=== PATIENT | male | born 1945 | race Two or more races ===

== ENCOUNTER 2020-07-24 14:44 | Inpatient (IN) | payer MEDICARE, OTHER ==
[~2020-07-24] VITALS: Ht 172.7 cm; Wt 83.3 kg
[2020-07-24 15:25] LABS: Basophils # (auto) 0 10 ^3/uL (0-0.2); Basophils % (auto) 0.3 % (0.0-2.0); Eosinophils # (auto) 0.1 10 ^3/uL (0-0.8); Hematocrit 38.5 % (41.0-53.0); Hemoglobin 13.1 g/dL (13.5-17.5); Lymphocytes % (auto) 31.1 % (10.0-50.0); Mean Corpuscular Hemoglobin 32.3 pg (28.0-32.0); Mean Corpuscular Hgb Conc. 33.9 g/dL (32.0-36.0); Mean Corpuscular Volume 95.1 fL (80.0-100.0); Monocytes # (auto) 0.6 10 ^3/uL (0-1.3); Monocytes % (auto) 9.7 % (0.0-12.0); Neutrophils # (auto) 3.6 10 ^3/uL (1.6-8.6); Neutrophils % (auto) 56.9 % (37.0-80.0); Nucleated Red Blood Cells % 0.1 %; Red Blood Cells 4.04 10^6/uL (4.5-5.90); Red Cell Distribution Width 13.5 % (11.8-14.3); White Blood Cell 6.3 10^3/uL (4.4-10.8)
[2020-07-24 15:32] LABS: Albumin 3.4 g/dL (3.4-5.0); BUN/Creatinine Ratio 11.1; Calcium 9.2 mg/dL (8.5-10.1); Potassium 4.4 mmol/L (3.5-5.1)
[2020-07-24 15:34] LABS: Bilirubin, Total 0.3 mg/dL (0.2-1.0); Total Protein 8.2 g/dL (6.4-8.2)
[2020-07-24] MEDS ORDERED: SODIUM CHLORIDE 0.9% 1,000 ML IV ONE ×2 (16:30→21:15)
[2020-07-24] MEDS ORDERED: MORPHINE SULFATE INJECTION 2 MG/ML SYRG IV PRN (17:30)
[2020-07-24] MEDS ORDERED: hydrALAZINE HCL 20 MG/ML VL IV PRN (17:30)
[2020-07-24] MEDS ORDERED: VANCOMYCIN PER PHARMACY 0 MG IV SCH (17:30)
[2020-07-24] MEDS ORDERED: HYDROcodone-ACET 5/325MG TAB PO PRN (17:30)
[2020-07-24] MEDS ORDERED: ACETAMINOPHEN 325 MG TAB PO PRN (17:30)
[2020-07-24] MEDS ORDERED: ONDANSETRON HCL 4 MG/2 ML VIAL IV PRN (17:30)
[2020-07-24 17:40] LABS: Magnesium 1.8 mg/dL (1.6-2.6)
[2020-07-24] MEDS: SODIUM CHLORIDE 0.9% 1,000 ML IV SCH (17:51)
[2020-07-24] MEDS ORDERED: VANCOMYCIN 1GM/250ML 250 ML IV ONE (18:00)
[2020-07-24] MEDS ORDERED: VANCOMYCIN 750mg/250ml 250 ML IV SCH (18:00)
[2020-07-24 18:05] LABS: INR 1.06 (0.9-1.15); Partial Thromboplastin Time 31.3 sec (23.0-31.2)
[2020-07-24] MEDS ORDERED: ATEN50TA PO (19:02)
[2020-07-24] MEDS ORDERED: BIMA1SOL EACHEYE (19:02)
[2020-07-24] MEDS ORDERED: AMLO-489 PO (19:02)
[2020-07-24] MEDS ORDERED: FEBU40TA3 PO (19:02)
[2020-07-24] MEDS ORDERED: BRIN1SUS EACHEYE (19:02)
[2020-07-24] MEDS ORDERED: TIMO0.5S32 EACHEYE (19:02)
[2020-07-24 22:00] VITALS: BP 158/82
[2020-07-24 23:42] LABS: Urine Bacteria FEW /hpf (None Seen); Urine Blood Negative /uL (Negative); Urine Specific Gravity 1.009 (1.001-1.035); Urine WBC 1 /hpf (0 - 3)
[2020-07-25] MEDS: SODIUM CHLORIDE 0.9% 1,000 ML IV SCH ×2 (03:55→13:30)
[2020-07-25 05:00] VITALS: BP 134/78
[2020-07-25 08:45] VITALS: BP 36/82
[2020-07-25] MEDS ORDERED: cefTRIAXone 1GM/50ML D5W 50 ML IV SCH (09:00)
[2020-07-25] MEDS ORDERED: PANTOPRAZOLE 40 MG TAB PO SCH (10:00)
[2020-07-25] MEDS ORDERED: ETOMIDATE (2MG/ML) 20ML VIAL IV ONE (10:33)
[2020-07-25] MEDS ORDERED: BACITRACIN INJ 50000 UNIT VIAL ONE (10:44)
[2020-07-25] MEDS ORDERED: ONDANSETRON HCL 4 MG/2 ML VIAL IV PRN (10:45)
[2020-07-25] MEDS ORDERED: LABETALOL HCL 5 MG/ML 4ML SYRINGE IV PRN (10:45)
[2020-07-25] MEDS ORDERED: ePHEDrine SULFATE 50 MG/ML AMP IV PRN (10:45)
[2020-07-25] MEDS ORDERED: MIDAZOLAM HCL 2MG/2ML 2ml VIAL (1mg/ml) IV PRN (10:45)
[2020-07-25] MEDS ORDERED: MORPHINE SULFATE 4 MG/ML SYR/VIAL IV PRN (10:45)
[2020-07-25] MEDS ORDERED: HYDROmorphone HCL 2 MG/ML VL IV PRN (10:45)
[2020-07-25] MEDS ORDERED: SUCCINYLCHOLINE CHLORIDE 20 MG/ML 10ML VIAL IV ONE (10:46)
[2020-07-25] MEDS ORDERED: MEPERIDINE HCL (25 MG/ML) 1ML VIAL ONE ×2 (10:48→11:16)
[2020-07-25] MEDS ORDERED: fentaNYL CITRATE 100 MCG/2 ML VL ONE (10:48)
[2020-07-25] MEDS ORDERED: MIDAZOLAM HCL 2MG/2ML 2ml VIAL (1mg/ml) ONE (10:48)
[2020-07-25] MEDS ORDERED: DexAMETHasone SOD PHOS 10MG/1ML VIAL INJ ONE (11:15)
[2020-07-25] MEDS ORDERED: PROPOFOL 10 MG/ML 20 ML IV ONE (11:15)
[2020-07-25] MEDS ORDERED: BUPIVACAINE HCL 50 ML ONE (11:30)
[2020-07-25 17:00] VITALS: BP 127/73
== END 2020-07-25 18:30 | disposition left against medical advice (07) | DRG 857 ==
LOC: ER 14:44 → OVERFLOW 17:29 → ER 18:06 → WEST WING 18:39
PROVIDERS: ADMIT Nurse Practitioner Acute Care; ATTEND Internal Medicine Nephrology
PROC: 0JBF0ZZ Excision of Left Upper Arm Subcutaneous Tissue and Fascia, Open Approach (ICD-10-PCS; 2020-07-25)
PROC: 0J9F0ZZ Drainage of Left Upper Arm Subcutaneous Tissue and Fascia, Open Approach (ICD-10-PCS; principal; 2020-07-25 10:48)
DX: T81.49XA Infection following a procedure, other surgical site, initial encounter (principal); L03.114 Cellulitis of left upper limb; L72.9 Follicular cyst of the skin and subcutaneous tissue, unspecified; F17.210 Nicotine dependence, cigarettes, uncomplicated; I12.9 Hypertensive chronic kidney disease with stage 1 through stage 4 chronic kidney disease, or unspecified chronic kidney disease; I70.0 Atherosclerosis of aorta; Y83.8 Other surgical procedures as the cause of abnormal reaction of the patient, or of later complication, without mention of misadventure at the time of the procedure; Y92.89 Other specified places as the place of occurrence of the external cause; Z71.6 Tobacco abuse counseling; Z79.899 Other long term (current) drug therapy; Z79.891 Long term (current) use of opiate analgesic; Z79.01 Long term (current) use of anticoagulants; N18.32 Chronic kidney disease, stage 3b
CPT/HCPCS: 36415; 71046; 80053; 81001; 83735; 84443; 84484; 85025; 85610; 85730; 86850; 86900; 86901; 87070; 87075; 87205; 93005; 96374; G0378; J0330; J0696; J1100; J2250; J2704; J3490

== ENCOUNTER 2023-06-06 10:43 | Emergency (ER) | payer MEDICARE, OTHER ==
[~2023-06-06] VITALS: Ht 172.7 cm; Wt 82.5 kg
[~2023-06-06 10:43] MED LIST: AMLO1TAB22 PO; ATEN50TA PO; BRIN1SUS EACHEYE; FEBU40TA6 PO; TIMO0.5S32 EACHEYE; [UNRECOGNIZED DRUG - CODE] EACHEYE
[2023-06-06] MEDS: LIDOCAINE W/ EPINEPHRINE 1% 20ML VIAL ID ONE (15:06)
[2023-06-06 15:45] VITALS: BP 125/71; PULSE 62; RESP 16; TEMP 97.7; O2SAT 97
[2023-06-06] MEDS ORDERED: HYDR-4902 PO (15:56)
[2023-06-06] MEDS ORDERED: MELO7.5T7 PO (15:56)
[2023-06-06] MEDS ORDERED: CEPH500C PO (17:09)
== END 2023-06-06 16:47 | disposition home or self-care (01) ==
LOC: ER 10:43
DX: M25.461 Effusion, right knee (principal); M17.11 Unilateral primary osteoarthritis, right knee
CPT/HCPCS: 73562; 87205

== ENCOUNTER 2023-10-25 06:07 | Inpatient (IN) | payer MEDICARE, OTHER ==
[2023-10-22 14:33] LABS: Basophils # (auto) 0.1 10 ^3/uL (0-0.2); Basophils % (auto) 1.3 % (0.0-2.0); Eosinophils # (auto) 0.2 10 ^3/uL (0-0.8); Eosinophils % (auto) 2.5 % (0.0-7.0); Hemoglobin 10.5 g/dL (13.5-17.5); Lymphocytes % (auto) 25.7 % (10.0-50.0); Mean Corpuscular Hemoglobin 29.3 pg (28.0-32.0); Mean Corpuscular Hgb Conc. 32.9 g/dL (32.0-36.0); Mean Corpuscular Volume 88.8 fL (80.0-100.0); Monocytes # (auto) 0.7 10 ^3/uL (0-1.3); Monocytes % (auto) 9.1 % (0.0-12.0); Neutrophils # (auto) 4.9 10 ^3/uL (1.6-8.6); Neutrophils % (auto) 61.4 % (37.0-80.0); Platelet Count (auto) 417 10^3/uL (140-450); Red Cell Distribution Width 15.3 % (11.8-14.3); White Blood Cell 7.9 10^3/uL (4.4-10.8)
[2023-10-22 14:51] LABS: INR 1.12 (0.9-1.15); Partial Thromboplastin Time 36.4 SEC (24.5-34.5); Prothrombin Time 11.8 sec (9.3-11.8)
[2023-10-22 15:12] LABS: Alkaline Phosphatase 97 U/L (46-116); Anion Gap 8 (5-15); BUN/Creatinine Ratio 11.3 (10.0-20.0); Blood Urea Nitrogen 26 mg/dL (9-23); Calcium 9.1 mg/dL (8.7-10.4); Carbon Dioxide 21 mmol/L (20-30); Chloride 110 mmol/L (98-107); Glucose 101 mg/dL (74-106); Sodium 139 mmol/L (136-145)
[2023-10-22 15:13] LABS: Albumin 4.1 g/dL (3.2-4.8); Aspartate Aminotransferase 9 U/L (13-40)
[2023-10-22 15:14] LABS: Bilirubin, Total 0.2 mg/dL (0.2-1.0); Total Protein 8.1 g/dL (5.7-8.2)
[2023-10-22 15:16] LABS: Alanine Aminotransferase < 9 U/L (7-40)
[~2023-10-25] VITALS: Ht 162.6 cm; Wt 86.5 kg
[~2023-10-25 06:07] MED LIST changes: +PANT40TA2 PO; -[UNRECOGNIZED DRUG - CODE] EACHEYE
[2023-10-25] MEDS: ceFAZolin 2 GM/D5W50ml 50 ML IV ONE (06:32)
[2023-10-25] MEDS: DexAMETHasone SOD PHOS 4 MG/1ML SDV INJ ONE (06:46)
[2023-10-25] MEDS: EPINEPHrine HCL 1 MG/1 ML AMP ONE (06:46)
[2023-10-25] MEDS ORDERED: GLYCOPYRROLATE 0.2 MG/ML 1ML VIAL ONE (06:55)
[2023-10-25] MEDS ORDERED: PROPOFOL 10 MG/ML 20 ML IV ONE ×2 (06:55→09:00)
[2023-10-25] MEDS ORDERED: LIDOCAINE 1% INJ PF 5ML AMP ONE (06:56)
[2023-10-25] MEDS ORDERED: DexAMETHasone SOD PHOS 10MG/1ML VIAL INJ ONE (06:56)
[2023-10-25] MEDS ORDERED: ONDANSETRON HCL 4 MG/2 ML VIAL ONE (06:56)
[2023-10-25] MEDS: BUPIVACAINE HCL 50 ML ONE (06:59)
[2023-10-25] MEDS: TRANEXAMIC ACID 20 ML ONE (07:01)
[2023-10-25] MEDS: CELECOXIB 100 MG CAP PO ONE (07:05)
[2023-10-25] MEDS: ACETAMINOPHEN IV 1000 MG/100ML (10MG/ML) IV ONE (07:05)
[2023-10-25] MEDS: GABAPENTIN 400 MG CAP PO ONE (07:05)
[2023-10-25] MEDS ORDERED: KETAMINE 50mg/ML 10ml Vial 10 ML ONE (07:15)
[2023-10-25 07:20] LABS: Urine Bacteria FEW /hpf (None Seen); Urine Blood Negative /uL (Negative); Urine Clarity Clear (Clear); Urine Color Light-Yellow (Yellow); Urine Protein, UAD TRACE (Negative); Urine Specific Gravity 1.016 (1.001-1.035); Urine Urobilinogen Normal (Negative); Urine WBC 1 /hpf (0 - 3); Urine pH 5.5 (5.0-9.0)
[2023-10-25] MEDS ORDERED: SODIUM CHLORIDE LOCK 10 ML ONE (07:26)
[2023-10-25] MEDS ORDERED: ePHEDrine SULFATE 50 MG/ML AMP ONE (07:55)
[2023-10-25] MEDS: KETOROLAC TROMETH 30 MG/ML 1ML VIAL ONE ×2 (07:58→10:15)
[2023-10-25] MEDS: MINERAL OIL TOPICAL 10ml TOP ONE (08:17)
[2023-10-25] MEDS ORDERED: LIDOCAINE HCL 2% TOP JELLY 5ML TOP ONE (08:51)
[2023-10-25] MEDS ORDERED: ESMOLOL HCL 10 ML IV ONE (09:02)
[2023-10-25] MEDS ORDERED: fentaNYL CITRATE 100 MCG/2 ML VL ONE (09:03)
[2023-10-25 09:53] VITALS: O2SAT 98
[2023-10-25] MEDS ORDERED: oxyCODONE HCL 5MG TAB PO PRN (10:00)
[2023-10-25] MEDS: PREGABALIN 25 MG CAP PO SCH (10:00)
[2023-10-25] MEDS: TIMOLOL MAL 0.5% OPTH(EYE) SOL 5ML EACHEYE SCH (10:00)
[2023-10-25] MEDS ORDERED: ACETAMINOPHEN 325 MG TAB PO PRN (10:00)
[2023-10-25] MEDS: amLODIPine BESYLATE 5 MG TAB PO SCH (10:00)
[2023-10-25] MEDS: PANTOPRAZOLE 40 MG TAB PO SCH (10:00)
[2023-10-25] MEDS: MORPHINE SULF PF 5 MG/10 ML VIAL ONE (10:12)
[2023-10-25] MEDS: VANCOMYCIN HCL 1000 MG VL ONE (10:12)
[2023-10-25] MEDS: BUPIVACAINE 0.25% INJ 50ML VIAL ONE (10:13)
[2023-10-25] MEDS: fentaNYL CITRATE 100 MCG/2 ML VL IV PRN (10:13)
[2023-10-25] MEDS ORDERED: hydrALAZINE HCL 20 MG/ML VL IV PRN (10:15)
[2023-10-25] MEDS ORDERED: ONDANSETRON HCL 4 MG/2 ML VIAL IV PRN (10:15)
[2023-10-25] MEDS: fentaNYL CITRATE 100 MCG/2 ML VL ONE (10:15)
[2023-10-25] MEDS ORDERED: ePHEDrine SULFATE 50 MG/ML AMP IV PRN (10:15)
[2023-10-25] MEDS ORDERED: HYDROmorphone HCL 2 MG/ML VL/or syr IV PRN (10:15)
[2023-10-25] MEDS ORDERED: NALOXONE HCL 0.4 MG/ML VIAL IV PRN (10:15)
[2023-10-25] MEDS ORDERED: FLUMAZENIL 0.1 MG/ML INJ 10ML MDV IV PRN (10:15)
[2023-10-25] MEDS: oxyCODONE HCL 5MG TAB PO PRN (10:20)
[2023-10-25] MEDS: oxyCODONE HCL 5MG TAB ONE (10:21)
[2023-10-25] MEDS: D5W/LACTATED RINGERS 1,000 ML IV SCH (12:00)
[2023-10-25] MEDS: ACETAMINOPHEN 325 MG TAB PO SCH (12:00)
[2023-10-25] MEDS: KETOROLAC TROMETH 30 MG/ML 1ML VIAL IV SCH (12:00)
[2023-10-25 14:10] VITALS: BP 150/68; PULSE 65; RESP 16; TEMP 98.2
[2023-10-25 14:16] VITALS: BP 153/74; PULSE 59; RESP 18; TEMP 97.8; O2SAT 96
[2023-10-25] MEDS: ceFAZolin 2 GM/D5W50ml 50 ML IV SCH (15:11)
[2023-10-25 17:00] VITALS: BP 149/88; PULSE 65; RESP 18; TEMP 98.2; O2SAT 97
[2023-10-25 20:00] VITALS: PULSE 81; RESP 18
[2023-10-25] MEDS: BRINZOLAMIDE 1% EACHEYE SCH (21:47)
[2023-10-25 22:00] VITALS: BP 120/59; PULSE 60; RESP 17; TEMP 98.7; O2SAT 96
[2023-10-26] VITALS (7 sets, daily range): BP systolic 126–131; BP diastolic 66–73; PULSE 58–81; RESP 16–19; TEMP 97.7–98; O2SAT 95–97
[2023-10-26 06:49] LABS: Basophils # (auto) 0 10 ^3/uL (0-0.2); Basophils % (auto) 0.1 % (0.0-2.0); Eosinophils # (auto) 0 10 ^3/uL (0-0.8); Hematocrit 28.1 % (41.0-53.0); Hemoglobin 9.4 g/dL (13.5-17.5); Lymphocytes % (auto) 9.9 % (10.0-50.0); Mean Corpuscular Hemoglobin 29.2 pg (28.0-32.0); Mean Corpuscular Hgb Conc. 33.3 g/dL (32.0-36.0); Mean Corpuscular Volume 87.4 fL (80.0-100.0); Monocytes # (auto) 0.7 10 ^3/uL (0-1.3); Monocytes % (auto) 6.5 % (0.0-12.0); Neutrophils # (auto) 8.7 10 ^3/uL (1.6-8.6); Neutrophils % (auto) 83.5 % (37.0-80.0); Platelet Count (auto) 364 10^3/uL (140-450); Red Blood Cells 3.21 10^6/uL (4.5-5.90); Red Cell Distribution Width 15.1 % (11.8-14.3); White Blood Cell 10.4 10^3/uL (4.4-10.8)
[2023-10-26 07:00] LABS: Chloride 104 mmol/L (98-107); Potassium 4.7 mmol/L (3.5-5.1)
[2023-10-26 07:01] LABS: Anion Gap 9 (5-15); Carbon Dioxide 21 mmol/L (20-30)
[2023-10-26 07:02] LABS: Calcium 8.8 mg/dL (8.7-10.4)
[2023-10-26 07:06] LABS: BUN/Creatinine Ratio 12.3 (10.0-20.0); Blood Urea Nitrogen 26 mg/dL (9-23); Glucose 185 mg/dL (74-106)
[2023-10-26 07:07] LABS: Sodium 134 mmol/L (136-145)
[2023-10-26] MEDS: [UNRECOGNIZED DRUG - OTHER] PO SCH (08:28)
[2023-10-26] MEDS: FEBUXOSTAT 40 MG PO SCH (08:28)
[2023-10-26] MEDS: ASPirin 81 mg TAB PO SCH (08:29)
[2023-10-26] MEDS: D5W/LACTATED RINGERS 1,000 ML IV SCH (12:21)
[2023-10-26] MEDS: oxyCODONE HCL 5MG TAB PO PRN (14:33)
== END 2023-10-26 19:22 | disposition home or self-care (01) | DRG 470 ==
LOC: SUR 06:07 → OVERFLOW 09:50 → WEST WING 14:00
PROVIDERS: ADMIT Orthopaedic Surgery; ATTEND Internal Medicine
PROC: 0SRC0J9 Replacement of Right Knee Joint with Synthetic Substitute, Cemented, Open Approach (ICD-10-PCS; principal; 2023-10-25 07:23)
DX: M17.11 Unilateral primary osteoarthritis, right knee (principal); M10.9 Gout, unspecified; E66.9 Obesity, unspecified; I12.9 Hypertensive chronic kidney disease with stage 1 through stage 4 chronic kidney disease, or unspecified chronic kidney disease; N18.30 Chronic kidney disease, stage 3 unspecified; Z96.651 Presence of right artificial knee joint; Z79.899 Other long term (current) drug therapy; Z68.32 Body mass index [BMI] 32.0-32.9, adult
CPT/HCPCS: 36415; 73560; 80048; 80053; 81001; 85025; 85610; 85730; 86850; 86900; 86901; 97110; 97116; 97163; 97530; G0378; J0131; J0171; J1100; J1885; J2405; J2704; J3490